=== PATIENT | male | born 1950 ===

== ENCOUNTER → 2021-04-19 | Day surgery (SDC) | payer MEDICARE, OTHER ==
[~2021-04-19] VITALS: Ht 177.8 cm; Wt 72.6 kg
[~2021-04-19] MED LIST: DIOVAN80 MG PO; FLOMAX0.4 MG PO; PRILOSEC20 MG PO
[2021-04-19 09:17] LABS: HGB 15.8 g/dl (13.2-18.0); MCH 33.4 pg (25.0-31.0); MCHC 34.3 g/dL (32.0-36.0); MCV 97.3 fL (78.0-100.0); MPV 10.3 fL (6.0-9.5); RBC 4.73 M/uL (4.70-6.00); RDW 12.6 % (11.5-14.0); WBC 9.6 K/uL (4.0-10.5)
[2021-04-19 09:51] LABS: ALBUMIN 3.3 g/dL (3.4-5.0); BILIRUBIN - TOTAL 0.6 mg/dL (0.2-1.0); BUN/CREAT RATIO (CALC) 7.2 RATIO; CREATININE 0.69 mg/dL (0.67-1.17); GLOBULIN (CALCULATION) 3.7 g/dL; POTASSIUM 2.8 mmol/L (3.5-5.1)
== END | disposition home or self-care (01) ==
LOC: FAS 08:40
PROVIDERS: Surgery
DX: K22.2 Esophageal obstruction (principal); K20.90 Esophagitis, unspecified without bleeding; K63.89 Other specified diseases of intestine; D72.820 Lymphocytosis (symptomatic); K29.70 Gastritis, unspecified, without bleeding; B96.81 Helicobacter pylori [H. pylori] as the cause of diseases classified elsewhere; D72.822 Plasmacytosis; K44.9 Diaphragmatic hernia without obstruction or gangrene; K58.9 Irritable bowel syndrome, unspecified; I10 Essential (primary) hypertension; R63.4 Abnormal weight loss; Z79.899 Other long term (current) drug therapy
CPT/HCPCS: 36415; 76705; 80053; 88305; 88342; C1726; J2704; J7120